=== PATIENT | male | born 1945 | race Caucasian/White ===

== ENCOUNTER 2023-07-23 14:53 | Emergency (ER) | payer MEDICARE, OTHER ==
[2023-07-23 15:29] VITALS: O2SAT 94
[2023-07-23 16:02] VITALS: PULSE 54; RESP 18
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
[2023-07-23 16:40] VITALS: BP 132/82
== END 2023-07-23 16:40 | disposition home or self-care (01) ==
LOC: ED 14:53
DX: Z04.3 Encounter for examination and observation following other accident (principal); S80.01XA Contusion of right knee, initial encounter; S80.11XA Contusion of right lower leg, initial encounter; S00.03XA Contusion of scalp, initial encounter; V86.09XA Driver of other special all-terrain or other off-road motor vehicle injured in traffic accident, initial encounter; E78.5 Hyperlipidemia, unspecified; I10 Essential (primary) hypertension; Z79.02 Long term (current) use of antithrombotics/antiplatelets; Z79.899 Other long term (current) drug therapy
CPT/HCPCS: 70450; 73560; 73590; 99283

== ENCOUNTER 2024-02-08 08:46 | Day surgery (SDC) | payer OTHER ==
[2024-02-08] MEDS ORDERED: VIGAMOX/BSS 0.15% SYR IO ONE (09:00)
[2024-02-08] MEDS ORDERED: BETADINE 5% OPHTHALMIC 30 ML OP ONE (09:00)
[2024-02-08] MEDS ORDERED: TRIAMCINOLONE 15 MG/ML INJ INTRAOP ONE (09:00)
[2024-02-08 09:30] VITALS: RESP 16
[2024-02-08] MEDS: TETRACAINE 0.5% STERI-UNIT SOL OP ONE ×2 (09:48→10:22)
[2024-02-08] MEDS: Ak-Dilate OPHTHALMIC*** 1.065 ML, Cyclogyl 1% OPHTH SOL 1.065 ML, GATIFLOXACIN 0.5% OPH... OP ONE (09:52)
[2024-02-08] MEDS: Sodium Chloride 0.9% 10 ML FLUSH Syringe IJ ONE (09:52)
[2024-02-08] MEDS ORDERED: Zofran 4 MG/2 ML VIAL IV PRN (11:15)
[2024-02-08] MEDS ORDERED: DIPRIVAN 200 MG/20 ML IV ONE (11:46)
[2024-02-08] MEDS ORDERED: ROBINUL ONE (11:55)
[2024-02-08] MEDS: ACETAZOLAMIDE 250 MG TABLET PO ONE (12:12)
[2024-02-08 12:18] VITALS: PULSE 61
[2024-02-08 12:21] VITALS: BP 121/82; O2SAT 96
[2024-02-08 12:24] VITALS: TEMP 97
== END 2024-02-08 12:25 | disposition home or self-care (01) ==
LOC: SDC 08:46
PROVIDERS: ATTEND Ophthalmology
DX: H25.812 Combined forms of age-related cataract, left eye (principal)
CPT/HCPCS: C1780; J2704; A9270-GY

== ENCOUNTER 2024-02-08 13:46 | Emergency (ER) | payer OTHER ==
[2024-02-08 13:58] VITALS: TEMP 97.7; O2SAT 95
--- NOTE | 2024-02-08 14:37 | ERPHSYRPT ---
- History of Present Illness Time Seen by Provider: 02/08/24 14:34 Source: patient Exam Limitations: no limitations Patient Subjective Stated Complaint: pt c/o of difficulty swallowing, pt had a cataract procedure done around 1200 today and propofol was used Triage Nursing Assessment: Pt brought to the ER by his , solo ball, denies pain, pt was able to drink coffee and pt then took 2-3 bites of chicken fried rice and an eggroll and was having a hard time swallowing and then tried to drink water and he coughed up a lot of phlem mixed with "airy bubbles" and was finally able to get the food down, pulses normal, skin n/w/d, no difficulty breathing, doesn't appear to be in any distress Physician History: 78-year-old male presents to our ED for evaluation of difficulty swallowing after sedation with propofol. Patient stated he had cataract surgery of his left eye today at noon. Patient was sedated with propofol. After surgery patient drank coffee and stated the coughing went down smoothly. However he ate a sandwich and states it was difficult for the sandwich to come down. He tried to ilana it down with water and stated the water came back up. The food eventually went down. Patient is currently asymptomatic. Patient able to tolerate p.o. at this time. He is not having any trouble swallowing. Patient currently asymptomatic. Portions of this note were created with voice recognition technology. There may be grammatical, spelling, punctuation or sound alike errors Timing/Duration: today Severity: moderate Modifying Factors: Improves With: nothing Associated Symptoms: denies symptoms Allergies/Adverse Reactions: No Known Drug Allergies Allergy (Verified 02/08/24 13:58) Home Medications: Clopidogrel Bisulfate [PLAVIX Tablet] 1 tab PO DAILY 07/23/23 [History] Atorvastatin Calcium 80 mg PO UD 02/07/24 [History] Carboxymethylcellulos/Glycerin [Lubricant 0.5-0.9% Eye Drops] 2 drop TD UD 02/07/24 [History] Cetirizine HCl [Zyrtec] 10 mg PO DAILY 02/07/24 [History] Dextran 70/Hypromellose [Artificial Tears] 1 each OP UD 02/07/24 [History] Fluticasone Propionate 50 mcg NEB UD 02/07/24 [History] Gabapentin 100 mg PO UD 02/07/24 [History] Guaifenesin [Mucinex] 1,200 mg PO UD 02/07/24 [History] Hydrochlorothiazide 25 mg [hydroDIURIL 25 MG] 25 mg PO DAILY 02/07/24 [History] Hydrocortisone 2.5% 30 gm [Anusol-Hc 2.5% Cream 30 gm] 30 gm TP UD 02/07/24 [History] Ketoconazole Cream [Nizoral CREAM] 15 gm TD UD 02/07/24 [History] Lisinopril 20 mg [Zestril 20 MG] 20 mg PO DAILY 02/07/24 [History] Multivitamin 1 each PO UD 02/07/24 [History] Nitroglycerin 0.4 mg Tablet [Nitrostat 0.4 MG Tablet] 0.4 mg SL UD 02/07/24 [History] Omeprazole 20 mg PO UD 02/07/24 [History] Sodium Chloride [[place] Saline] 50 ml TP UD 02/07/24 [History] Terazosin HCl 5 mg PO UD 02/07/24 [History] Vit A/Vit C/Vit E/Zinc/Copper [Preservision Areds Tablet] 1 each PO UD 02/07/24 [History] Desonide 1 gm DAILY 02/08/24 [History] Ketoconazole [Nizoral A-D] 200 ml TP DAILY 02/08/24 [History] cycloSPORINE [Cequa] 1 each OP DAILY 02/08/24 [History] fluorouraciL [Fluorouracil] 30 gm TP DAILY 02/08/24 [History] Hx Tetanus, Diphtheria Vaccination/Date Given: Yes Hx Influenza Vaccination/Date Given: Yes Hx Pneumococcal Vaccination/Date Given: Yes Travel Risk - International Travel Have you traveled outside of the country in past 3 weeks: No - Emerging Infectious Disease Are you exhibiting symptoms associated with any current EIDs: No - Review of Systems Constitutional: No Symptoms, No Fever, No Chills Eyes: No Symptoms Ears, Nose, & Throat: No Symptoms Respiratory: No Symptoms, No Cough, No Dyspnea Cardiac: No Symptoms, No Chest Pain, No Edema, No Syncope Abdominal/Gastrointestinal: No Symptoms, No Abdominal Pain, No Nausea, No Vomiting, No Diarrhea Genitourinary Symptoms: No Symptoms, No Dysuria Musculoskeletal: No Symptoms, No Back Pain, No Neck Pain Skin: No Symptoms, No Rash Neurological: No Symptoms, No Dizziness, No Focal Weakness, No Sensory Changes Psychological: No Symptoms Endocrine: No Symptoms Hematologic/Lymphatic: No Symptoms Immunological/Allergic: No Symptoms All Other Systems: Reviewed and Negative - Past Medical History Pertinent Past Medical History: Yes Neurological History: No Pertinent History ENT History: Cataracts Cardiac History: High Cholesterol, Hypertension Respiratory History: Sleep Apnea Endocrine Medical History: No Pertinent History Musculoskeletal History: Arthritis GI Medical History: No Pertinent History History: No Pertinent History Psycho-Social History: Depression, Other Male Reproductive Disorders: No Pertinent History Other Medical History: possible malaria from [place] - Past Surgical History Past Surgical History: Yes Neuro Surgical History: No Pertinent History Cardiac: No Pertinent History Respiratory: No Pertinent History Gastrointestinal: No Pertinent History Genitourinary: No Pertinent History Musculoskeletal: Orthopedic Surgery Male Surgical History: No Pertinent History Other Surgical History: minicuous repair, - Social History Smoking Status: Never smoker Exposure to second hand smoke: No Drug Use: none Patient Lives Alone: No - Social Determinants of Health Will the patient participate in the screening: Yes Do you worry about a steady place to live?: No Do you have any problems with any of the following?: No known problems In the past 12 months,have you had to go without utilities?: No Transportation Issues: No Has anyone in your support network made you feel unsafe?: No Have you or anyone in your house had to go without enough: No - Nursing Vital Signs Nursing Vital Signs: Initial Vital Signs Temperature 97.7 F 02/08/24 13:51 Pulse Rate 60 02/08/24 13:51 Blood Pressure 122/70 02/08/24 13:51 O2 Sat by Pulse Oximetry 95 02/08/24 13:51 Pain Scale Pain Intensity 0 - Physical Exam General Appearance: no apparent distress, alert Eye Exam: PERRL/EOMI, eyes nml inspection Ears, Nose, Throat Exam: normal ENT inspection, pharynx normal, moist mucous membranes Neck Exam: normal inspection, non-tender, supple, full range of motion Respiratory Exam: normal breath sounds, lungs clear, airway intact, No respiratory distress Cardiovascular Exam: regular rate/rhythm, normal heart sounds, normal peripheral pulses Gastrointestinal/Abdomen Exam: soft, normal bowel sounds, No tenderness, No mass Back Exam: normal inspection, normal range of motion, No CVA tenderness, No vertebral tenderness Extremity Exam: normal inspection, normal range of motion, pelvis stable Neurologic Exam: alert, oriented x 3, cooperative, normal mood/affect, sensation nml, No motor deficits Skin Exam: normal color, warm, dry, No rash Lymphatic Exam: No adenopathy SpO2 Interpretation: normal SpO2: 95 O2 Delivery: Room Air - Course Nursing assessment & vital signs reviewed: Yes - Progress Progress: improved Progress Note: 78-year-old male presents to our ED for evaluation of dysphagia postanesthesia. Patient had a cataract surgery. Procedure went well. No intra or postprocedural complications per patient. Patient symptomology resolved. Patient now able to swallow without issues or complications. Patient had no other neurologic manifestation. No focal or lateralizing symptomology. No indication for workup at this time. Patient states he will advance his diet at home. Patient agrees to follow-up with his primary care doctor the [place] for further evaluation and treatment. Portions of this note were created with voice recognition technology. There may be grammatical, spelling, punctuation or sound alike errors Complexity problem addressed is moderate acute complicated. No critical care time. Complex of data reviewed and analyzed is none. No specialized testing ordered. Diagnosis made based on history and physical exam. Risk of complication and or risk of morbidity/mortality of patient management is low. Vital stable. Time spent to discharge patient approximately 20 minutes. Plan of care established for shared decision making. No social determinants felt present to pain follow-up. Portions of this note were created with voice recognition technology. There may be grammatical, spelling, punctuation or sound alike errors 02/08/24 14:50 Counseled pt/family regarding: diagnosis, need for follow-up - Departure Departure Disposition: Home Clinical Impression: Postanesthesia dysphagia Condition: Stable Critical Care Time: No Referrals: [facility]OSPITAL,'[facility] [Primary Care Provider] - Follow up/PCP as directed Instructions: Dysphagia in adults - Discharge instructions Additional Instructions: Discharge/Care Plan ORENVivianeENRICO AMANDO was seen on 02/08/24 in the Emergency Room. The patient was counseled regarding Diagnosis,Lab results, Imaging studies, need for follow up and when to return to the Emergency Room. Prescriptions given: Discharge Note I have spoken with the patient and/or caregivers. I have explained the patient's condition, diagnosis and treatment plan based on the information available to me at this time. I have answered the patient's and/or caregiver's questions and addressed any concerns. The patient and/or caregivers have as good understanding of the patient's diagnosis, condition and treatment plan as can be expected at this point. The vital signs have been stable. The patient's condition is stable and appropriate for discharge from the emergency department. The patient will pursue further outpatient evaluation with the primary care physician or other designated or consulting physician as outlined in the discharge instructions. The patient and/or caregivers are agreeable to this plan of care and follow-up instructions have been explained in detail. The patient and/or caregivers have received these instruction. The patient/and or caregivers are aware that any significant change in condition or worsening of symptoms should prompt an immediate return to this or the closest emergency department or call 911.
[2024-02-08 14:48] VITALS: BP 128/74; PULSE 68; RESP 16
== END 2024-02-08 14:53 | disposition home or self-care (01) ==
LOC: ED 13:46
DX: K91.89 Other postprocedural complications and disorders of digestive system (principal); R13.10 Dysphagia, unspecified; E78.5 Hyperlipidemia, unspecified; I10 Essential (primary) hypertension; Z79.02 Long term (current) use of antithrombotics/antiplatelets; Z79.899 Other long term (current) drug therapy
CPT/HCPCS: 99281